=== PATIENT | female | born 1940 | race Caucasian/White ===

== ENCOUNTER → 2023-06-05 12:46 | Outpatient (BNVA) | payer MEDICARE, OTHER, SELFPAY | PROVIDERS: Visit Provider Nurse Practitioner | DX: S99.922A Unspecified injury of left foot, initial encounter (principal); X58.XXXA Exposure to other specified factors, initial encounter; M19.072 Primary osteoarthritis, left ankle and foot | CPT/HCPCS: 73630 ==

== ENCOUNTER 2023-07-11 13:20 | Outpatient (CLI) | payer MEDICARE, OTHER, SELFPAY ==
--- NOTE | 2023-07-11 13:30 | XR_ITS ---
WS: [id number] DEXA (DUAL ENERGY X-RAY ABSORPTIOMETRY) Bone mineral density was performed using a [employer] machine. HISTORY: post menopausal COMPARISON: None available. Lumbar spine BMD (L1-L4): 1.024 g/cm2 T score: -1.3 Z score: 0.7 Total hip BMD: Left: 0.728 g/cm2. T score: -2.2 Z score: 0.0 Right: 0.749 g/cm2. T score: -2.1 Z score: 0.1 10 year probability of a major osteoporotic fracture is 19.5%. IMPRESSION: OSTEOPENIA based upon the WHO classification for females.
== END 2023-07-11 13:21 | disposition home or self-care (01) ==
PROVIDERS: PCP Family Medicine; Visit Provider Family Medicine
DX: Z78.0 Asymptomatic menopausal state (principal); M85.80 Other specified disorders of bone density and structure, unspecified site
CPT/HCPCS: 77080

== ENCOUNTER 2023-07-26 11:59 | Outpatient (RCR) | payer MEDICARE, OTHER, SELFPAY | END 2023-08-08 23:59 | disposition home or self-care (01) | LOC: SPT 11:59 | PROVIDERS: Visit Provider Family Medicine | DX: R26.9 Unspecified abnormalities of gait and mobility (principal) | CPT/HCPCS: 97110; 97112; 97161 ==

== ENCOUNTER 2023-08-09 06:00 | Outpatient (RCR) | payer MEDICARE, OTHER, SELFPAY | END 2023-08-24 23:59 | disposition home or self-care (01) | LOC: SPT 06:00 | PROVIDERS: Visit Provider Family Medicine | DX: R26.81 Unsteadiness on feet (principal) | CPT/HCPCS: 97110; 97112; 97530 ==

== ENCOUNTER 2024-03-26 09:13 | Outpatient (CLI) | payer MEDICARE, OTHER, SELFPAY ==
--- NOTE | 2024-03-26 09:29 | XRR_ITS ---
PROCEDURE INFORMATION: Exam: XR Left Hip Exam date and time: 03/26/2024 9:32 AM Age: 83 years old Clinical indication: Hip pain; Left hip; Additional info: Oa left hip TECHNIQUE: Imaging protocol: Radiologic exam of the left hip. Views: 2 or 3 views hip with pelvis when performed. COMPARISON: No relevant prior studies available. FINDINGS: Bones/joints: No acute fracture or dislocation. Severe joint space loss with associated osteophytosis, subchondral sclerosis and prominent cystic change. Degenerative change of the imaged lower lumbar spine, sacroiliac joints, and pubic symphysis. Soft tissues: Unremarkable. Gastrointestinal tract: Couple adjacent 1.4 cm long ovoid radiodensities at the left abdomen may represent bowel contents. XR/XR hip LT 2-3V wo/w pel* [id number] IMPRESSION: Severe left hip osteoarthritis.
== END 2024-03-26 09:14 | disposition home or self-care (01) ==
LOC: RAD 09:14
PROVIDERS: PCP Family Medicine; Visit Provider Family Medicine
DX: M16.12 Unilateral primary osteoarthritis, left hip (principal); M25.752 Osteophyte, left hip; G31.89 Other specified degenerative diseases of nervous system
CPT/HCPCS: 73502

== ENCOUNTER → 2024-05-14 10:53 | Outpatient (BNVA) | payer MEDICARE, OTHER, SELFPAY | PROVIDERS: PCP Family Medicine; Visit Provider Student in an Organized Health Care Education/Training Program | DX: M16.12 Unilateral primary osteoarthritis, left hip (principal) | CPT/HCPCS: 99203 ==

== ENCOUNTER → 2024-07-02 12:49 | Outpatient (BNVA) | payer MEDICARE, OTHER, SELFPAY | PROVIDERS: PCP Family Medicine | DX: I48.0 Paroxysmal atrial fibrillation (principal) | CPT/HCPCS: 80053; 84443; 85025; 93005 ==